=== PATIENT | female | born 2000 | race Two or more races ===

== ENCOUNTER 2021-05-06 18:57 | Inpatient (IN) | payer OTHER ==
[~2021-05-06] VITALS: Ht 162.6 cm; Wt 65.3 kg
[2021-05-06] MEDS ORDERED: PRENATAL CAPLE1 EAC1 (19:10)
== END 2021-05-09 16:20 | disposition home or self-care (01) | DRG 807 ==
LOC: LDR 18:57 → EDBD 18:57 → OB/GYN 18:57 → LDR 05-07 01:12 → OB/GYN 05-07 11:22
PROVIDERS: ADMIT Obstetrics & Gynecology; ATTEND Obstetrics & Gynecology
PROC: 4A1HXFZ Monitoring of Products of Conception, Cardiac Rhythm, External Approach (ICD-10-PCS; 2021-05-06)
PROC: BY4FZZZ Ultrasonography of Third Trimester, Single Fetus (ICD-10-PCS; 2021-05-06)
PROC: 10E0XZZ Delivery of Products of Conception, External Approach (ICD-10-PCS; principal; 2021-05-07)
PROC: 0UQMXZZ Repair Vulva, External Approach (ICD-10-PCS; 2021-05-07)
DX: O71.82 Other specified trauma to perineum and vulva (principal); Z37.0 Single live birth; O42.02 Full-term premature rupture of membranes, onset of labor within 24 hours of rupture; Z3A.33 33 weeks gestation of pregnancy